=== PATIENT | female | born 1985 | race Caucasian/White ===

== ENCOUNTER 2016-04-12 10:50 | Emergency (ER) | payer MEDICAID ==
[~2016-04-12] VITALS: Ht 160 cm; Wt 83.9 kg
[2016-04-12 14:27] VITALS: BP 132/82
== END 2016-04-12 15:34 | disposition home or self-care (01) ==
LOC: ER 10:50
DX: S40.262A Insect bite (nonvenomous) of left shoulder, initial encounter (principal); E07.9 Disorder of thyroid, unspecified; Z76.0 Encounter for issue of repeat prescription; W57.XXXA Bitten or stung by nonvenomous insect and other nonvenomous arthropods, initial encounter; Y93.89 Activity, other specified; Y99.8 Other external cause status; Y92.89 Other specified places as the place of occurrence of the external cause